=== PATIENT | male | born 1960 | race Caucasian/White ===

== ENCOUNTER 2019-09-23 06:11 | Day surgery (SDC) | payer OTHER ==
[2019-09-22 16:38] VITALS: BMI 28.5
[2019-09-23] MEDS ORDERED: ROPIVACAINE HCL 0.5% 30ML VIAL ONE (07:35)
[2019-09-23] MEDS ORDERED: MIDAZOLAM HCL 2 MG/2 ML SINGLE DOSE VIAL ONE ×2 (07:36)
[2019-09-23] MEDS ORDERED: ROCURONIUM BROMIDE 50 MG/5 ML SYRINGE ONE (07:53)
[2019-09-23] MEDS ORDERED: PROPOFOL 20 ML ONE ×2 (07:53)
--- NOTE | 2019-09-23 08:02 | HP ---
Satellite H - Chief Complaint Chief Complaint: left shoulder pain - Past Medical History Allergies/Adverse Reactions: Allergies Allergy/AdvReac Type Severity Reaction Status Date / Time Iodine and Iodide Containing Allergy Severe Hives Verified 09/22/19 16:39 Produc - Current Medications Current Medications: Home Medications Medication Instructions Recorded Amlodipine Besylate [Norvasc -] 10 mg PO DAILY 02/06/14 Nebivolol HCl [Bystolic] 20 mg PO DAILY 02/06/14 Apixaban [Eliquis -] 5 mg PO BID 09/22/19 Spironolactone [Aldactone -] 25 mg PO DAILY 09/22/19 Telmisartan/Hydrochlorothiazid 1 each PO DAILY 09/22/19 [Telmisartan-Hctz 80-25 mg Tab] Oxycodone HCl/Acetaminophen 1 - 2 tab PO Q6H #30 tab MDD 6 09/23/19 [Percocet 5-325 mg Tablet] Satellite Physical Exam - Physical Examination Vital Signs: Vital Signs Period Temp Pulse Resp BP Sys/Hale Pulse Ox Last 24 Hr 98.1 F-98.1 F 61-61 20-20 136-136/81-81 99 General Appearance: Well Nourished, Well Developed, Alert & Oriented x3 ENT: Clear Lung: Normal air movement Extremities: Other (left shoulder- + ttp ,dec rom, + empty can, + neer, + lewis, nvi, MRi + rct) Neurological: Intact, Alert, Oriented Satellite Impression/Plan - Impression/Plan Impression: left shoulder rct Operative Procedure: left shoulder arthroscopy with RCENE Giordano Date to be Performed: 09/23/19
[2019-09-23] MEDS ORDERED: ONDANSETRON 4 MG/2 ML VIAL IVPUSH PRN (08:03)
[2019-09-23] MEDS ORDERED: oxyCODONE HCL 5 MG TABLET PO PRN (08:03)
[2019-09-23] MEDS ORDERED: LACTATED RINGERS SOLUTION 1,000 ML IV SCH (08:15)
[2019-09-23] MEDS ORDERED: ceFAZolin SODIUM 1 GM VIAL IVPB ONE (08:15)
[2019-09-23] MEDS ORDERED: NEOSTIGMINE METHYLSULFATE 0.5 MG/ML - 10 ML MDV ONE (09:30)
--- NOTE | 2019-09-23 09:40 | OP ---
Operative Note - Note: Operative Date: 09/23/19 ([facility]) Pre-Operative Diagnosis: left shoulder rct Operation: left shoulder arthroscopy with RCR, SAD Post-Operative Diagnosis: Same as Pre-op Surgeon: Ben Zuñiga Dairy Grazer: Chino Conde Anesthesiologist/ESTHETICIAN MAKEUP ARTIST: Jhoana Farris MD Anesthesia: General, Local Specimens Removed: shavings Estimated Blood Loss (mls): 5
[2019-09-23] MEDS ORDERED: ONDANSETRON 4 MG/2 ML VIAL ONE (11:10)
[2019-09-23] MEDS ORDERED: ONDANSETRON 4 MG/2 ML VIAL IVPUSH ONE (11:16)
--- NOTE | 2019-09-23 13:16 | OP ---
DATE OF OPERATION: 09/23/2019 PREOPERATIVE DIAGNOSIS: Left rotator cuff tear. POSTOPERATIVE DIAGNOSIS: Left rotator cuff tear. OPERATIVE PROCEDURE: Arthroscopy and left rotator cuff repair and biceps tenotomy. SURGICAL ATTENDING: Ben Zuñiga MD COUNSELLING PSYCHOLOGIST: AMY Gallardo ANESTHESIA: Regional and general. CLOSURE: An Arthrex SpeedBridge for rotator cuff, as well as SutureTape with an additional SwiveLock. Nylon 3-0 for skin. ESTIMATED BLOOD LOSS: Negligible. COMPLICATIONS: None. CONDITION: To recovery room in stable condition. DESCRIPTION OF OPERATIVE PROCEDURE: Patient was taken to the operating room on September 23, 2019. General anesthesia with endotracheal intubation was administered by the anesthesiologist. IV Kefzol was administered prophylactically prior to the case. Patient was placed in the beach chair position with all prominences well padded. Left shoulder area was prepped and draped in the usual sterile fashion. First, a diagnostic arthroscopy of the glenohumeral joint was performed. Posterior portal was made 2 fingerbreadths below with 15-blade followed by blunt trocar. Review of the glenohumeral joint revealed the following: Intact glenohumeral head articular cartilage, intact labrum circumferentially, no loose bodies in the pouch, intact subscapularis to its insertion. The biceps tendon was found to be torn 99% of its substance. The anterior portal was then made using a spinal needle followed by blunt trocar. Shaver was introduced to debride the stump of the biceps tendon and complete the tear and allow the biceps tendon to retract. Looking superiorly to the large rotator cuff tear, had a hanging debris inside the glenohumeral joint was debrided using the shaver. The fluid was drained from the shoulder and trocars were removed. Posterior trocar was redirected in the subacromial space. An accessory lateral portal was made using 15-blade and blunt trocar. A large amount of subacromial bursal tissue was encountered, which was debrided using the shaver and the ArthroCare device. Coracoclavicular ligament was identified and detached from the anterior acromion to further debride it. Large subacromial spur was debrided. Acromioplasty was performed up to the appropriate height. Looking inferiorly, there was a large rotator cuff tear. Its leading edge was debrided using the shaver, exposing more healthy rotator cuff tendon. The landing site on the greater tuberosity was debrided of soft tissue, and the bur was used to skin the bone make a nice bleeding surface for reimplantation. A 4th portal was made at the anterolateral corner by spinal needle followed by a 15-blade and blunt trocar. Multiple portals were used to help shuttle sutures during the repair. As the tear was quite extensive, we elected to use the SpeedBridge first to fixate the mid and posterior portion of the rotator cuff. We found that the tendon was sufficiently mobile in order to be easily brought back to it site on the greater tuberosity. Two pre-loaded SwiveLock anchors were malleted in the articular margin, one posteriorly and one more centrally. These anchors were pre-loaded with SutureTape. All 4 limbs were then passed individually through the rotator cuff using the Scorpion suture passer, then pulled to the greater tuberosity and fixated 2 lateral row anchors. The posterior one had 1 anterior limb suture and 1 posterior limb suture. The more medial middle one had an anterior and posterior limb suture as well, both these fixating to a lateral row, reducing the middle and posterior rotator cuff quite sufficiently. We then passed a SutureTape with a horizontal mattress formation using the Scorpion needle in the anterior portion rotator cuff and we were able to reduce that to the greater tuberosity and fixate it to an independent SwiveLock suture. All sutures were cut flush with the bone, close fixation. Shoulder was taken through a range of motion and found to have excellent stability repair, excellent clearance of the rotator cuff in the subacromial space. Fluid was drained. The trocars were removed. The portals were then closed with 3-0 nylon. Sterile Aquacel dressing was applied followed by shoulder immobilizer. Patient awakened from anesthesia and transferred to recovery in stable condition. No complications, estimated blood loss negligible. Maurisio [id number]
[2019-09-23 16:20] VITALS: BP 140/75; PULSE 65; TEMP 97.8
--- NOTE | 2019-09-26 16:19 | PATH ---
Surgical Pathology Report Patient Name: YADIRA WAGGONER [facility] [place]. Rec. #: [id number] /Age/Gender: 1960 (Age: 59) / M Account: [id number] Location: [facility] SURGICAL Taken: 09/23/2019 Received: 09/23/2019 Reported: 09/26/2019 Physicians: Ben Zuñiga M.D. Specimen(s) Received LEFT SHOULDER SHAVINGS Clinical History Left shoulder tear Final Diagnosis SHOULDER SHAVINGS, LEFT, ARTHROSCOPY, DECOMPRESSION, ROTATOR CUFF REPAIR: FRAGMENTS OF BENIGN CARTILAGE, BONE, DENSE FIBROCONNECTIVE TISSUE, ADIPOSE TISSUE, SYNOVIUM, AND SKELETAL MUSCLE. Electronically Signed Simran Gabriel M.D. Gross Description Received in formalin, labeled "left shoulder shavings," is a 4.0 x 3.0 x 0.3 cm. aggregate of cross-yellow soft tissue fragments. A electroplating sales representative portion is submitted in one cassette. /09/23/201909/23/2019
== END 2019-09-23 15:15 | disposition home or self-care (01) ==
LOC: JASU-SURG 06:11
PROVIDERS: ATTEND Orthopaedic Surgery
PROC: 0LQ24ZZ Repair Left Shoulder Tendon, Percutaneous Endoscopic Approach (ICD-10-PCS; principal; 2019-09-23 08:39)
PROC: 0LS24ZZ Reposition Left Shoulder Tendon, Percutaneous Endoscopic Approach (ICD-10-PCS; 2019-09-23 08:39)
DX: M75.102 Unspecified rotator cuff tear or rupture of left shoulder, not specified as traumatic (principal)
CPT/HCPCS: 88304-TC; 94760